=== PATIENT | male | born 1950 | race Caucasian/White ===

== ENCOUNTER 2020-04-05 09:47 | Day surgery (SDC) | payer MEDICARE, OTHER ==
[~2020-04-05 09:47] MED LIST: Cefuroxime 10 MG/ML SYRINGE EYELF SCH; Lidocaine 1% PF 2 ML SDV INJECT SCH; Pilocarpine 4% Ophth Soln 15 ML Bot EYELF SCH
[2020-04-05] MEDS: Polymyxin B/Trimethoprim 10 ML Bottle EYELF SCH ×3 (09:59→11:19)
[2020-04-05] MEDS: Brimonidine 0.2% Ophth Soln 5 ML Bottle EYELF SCH ×3 (10:03→11:19)
[2020-04-05] MEDS: Phenylephrine 2.5% Ophth Soln 2 ML Bot EYELF SCH ×5 (10:06→10:53)
--- NOTE | 2020-04-05 10:08 | PCM.PREANE ---
Preanesthetic Assessment - Anesthesia/Transfusion/Family Hx Anesthesia History: Prior Anesthesia Without Reaction Family History of Anesthesia Reaction: No Transfusion History: No Prior Transfusion(s) - Review of Systems General: No Symptoms Pulmonary: No Symptoms Cardiovascular: No Symptoms Gastrointestinal: No Symptoms Neurological: No Symptoms Other: Reports: None - Physical Assessment NPO Status Date: 04/04/20 NPO Status Time: 19:00 ASA Class: 2 Mental Status: Alert & Oriented x3 Airway Class: Mallampati = 1 Dentition: Reports: Normal Dentition Thyro-Mental Finger Breadths: 3 Mouth Opening Finger Breadths: 3 ROM/Head Extension: Full Lungs: Clear to Auscultation, Normal Respiratory Effort Cardiovascular: Regular Rate, Regular Rhythm - Allergies Allergies/Adverse Reactions: Allergies Allergy/AdvReac Type Severity Reaction Status Date / Time No Known Allergies Allergy Verified 08/17/15 08:14 - Acknowledgements Anesthesia Type Planned: MAC Pt an Appropriate Candidate for the Planned Anesthesia: Yes Alternatives and Risks of Anesthesia Discussed w Pt/Guardian: Yes Pt/Guardian Understands and Agrees with Anesthesia Plan: Yes PreAnesthesia Questionnaire HEENT History: Reports: Cataract Cardiovascular History: Reports: High Cholesterol Respiratory History: Reports: SOB (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) Gastrointestinal History: Reports: None Genitourinary History: Reports: None Musculoskeletal History: Reports: Arthritis Neurological History: Reports: None Psychiatric History: Reports: None Endocrine/Metabolic History: Reports: None - Past Surgical History HEENT Surgical History: Reports: Tonsillectomy, Other (See Below) (trachea, vocal cord) GI Surgical History: Reports: Appendectomy Musculoskeletal Surgical History: Reports: Shoulder Surgery, Other (See Below) (ankle, knee (R) multiple due to accident) - SUBSTANCE USE Tobacco Use Status *Q: Never Tobacco User - CURRENT (IN HOUSE) MEDS Current Meds: Current Medications Brimonidine Tartrate (Alphagan 0.2% Ophth Soln) 0 ml EYELF ASDIRECTED BENJY Stop: 04/05/20 23:00 Cefuroxime Sodium (Zinacef) 0 mg EYELF ASDIRECTED BENJY Stop: 04/05/20 23:00 Lidocaine HCl (Xylocaine-Mpf 1%) 0 ml INJECT ASDIRECTED BENJY Stop: 04/05/20 23:00 Phenylephrine HCl (Eamon-Synephrine 2.5% Ophth Soln) 0 ml EYELF ASDIRECTED BENJY Stop: 04/05/20 23:00 Pilocarpine HCl (Pilocar 4% Ophth Soln) 0 ml EYELF ASDIRECTED BENJY Stop: 04/05/20 23:00 Polymyxin/Trimethoprim Sulfate (Polytrim Ophth Soln) 0 ml EYELF ASDIRECTED BENJY Stop: 04/05/20 23:00 Last Admin: 04/05/20 09:59 Dose: 1 drop Documented by: Tetracaine HCl (Tetracaine 0.5% Steri-Unit Steffi) 0 ml EYEBOTH ASDIRECTED BENJY Stop: 04/05/20 23:00 Tropicamide (Mydriacyl 1% Ophth Soln) 0 ml EYELF ASDIRECTED BENJY Stop: 04/05/20 23:00
[2020-04-05] MEDS: Tropicamide 1% Ophth Soln 15 ML Bottle EYELF SCH ×4 (10:09→10:36)
[2020-04-05] MEDS: Tetracaine HCl/PF 0.5% 4 ML Bottle EYEBOTH SCH ×2 (10:40→11:01)
[2020-04-05] MEDS ORDERED: Lidocaine 1% with EPINEPHrine 1:100,000 20 ML MDV ONE (10:53)
[2020-04-05] MEDS ORDERED: Erythromycin Base 0.5% Ophth Oint 1 GM Tube ONE (10:53)
--- NOTE | 2020-04-05 11:20 | PCM48HPAN ---
Post Anesthesia Note - EVALUATION WITHIN 48HRS OF ANESTHETIC Vital Signs in Normal Range: Yes Patient Participated in Evaluation: Yes Respiratory Function Stable: Yes Airway Patent: Yes Cardiovascular Function Stable: Yes Hydration Status Stable: Yes Pain Control Satisfactory: Yes Nausea and Vomiting Control Satisfactory: Yes Mental Status Recovered: Yes Vital Signs: Last Vital Signs Temp 36.5 C 04/05/20 09:45 Pulse 72 04/05/20 09:45 Resp 16 04/05/20 09:45 BP 160/87 H 04/05/20 09:45 Pulse Ox 97 04/05/20 09:45
== END 2020-04-05 11:34 | disposition home or self-care (01) ==
LOC: JD.SDS 09:47
PROVIDERS: ATTEND Ophthalmology
DX: H25.813 Combined forms of age-related cataract, bilateral (principal); H21.81 Floppy iris syndrome; H21.42 Pupillary membranes, left eye; E78.00 Pure hypercholesterolemia, unspecified; H01.02B Squamous blepharitis left eye, upper and lower eyelids; H01.02A Squamous blepharitis right eye, upper and lower eyelids; H02.834 Dermatochalasis of left upper eyelid; H02.831 Dermatochalasis of right upper eyelid; H11.153 Pinguecula, bilateral; Z98.890 Other specified postprocedural states; Z90.89 Acquired absence of other organs; Z79.899 Other long term (current) drug therapy
CPT/HCPCS: 66982; C1780; J0697; J2001; A9270-GY

== ENCOUNTER 2025-02-18 11:20 | Day surgery (SDC) | payer MEDICARE, OTHER ==
[2025-02-18] MEDS: Tetracaine HCl/PF 0.5% 4 ML Bottle EYEBOTH SCH (07:31)
[2025-02-18] MEDS: Lidocaine 1% PF 2 ML SDV INJECT SCH (07:31)
[2025-02-18] MEDS: Pilocarpine 4% Ophth Soln 15 ML Bot EYERT SCH (07:32)
[2025-02-18] MEDS: Polymyxin B/Trimethoprim 10 ML Bottle EYERT SCH (07:32)
[2025-02-18] MEDS: Cefuroxime 10 MG/ML SYRINGE EYERT SCH (07:32)
[2025-02-18] MEDS: Tropicamide 1% Ophth Soln 3 ML Bottle EYERT SCH (11:50)
== END 2025-02-18 13:09 | disposition home or self-care (01) ==
LOC: JD.SDS 11:20
PROVIDERS: ATTEND Ophthalmology
DX: H25.811 Combined forms of age-related cataract, right eye (principal); H21.81 Floppy iris syndrome; H21.40 Pupillary membranes, unspecified eye; H40.011 Open angle with borderline findings, low risk, right eye; H35.3131 Nonexudative age-related macular degeneration, bilateral, early dry stage; H35.363 Drusen (degenerative) of macula, bilateral; H11.153 Pinguecula, bilateral; H18.413 Arcus senilis, bilateral; H02.831 Dermatochalasis of right upper eyelid; H02.834 Dermatochalasis of left upper eyelid; H57.813 Brow ptosis, bilateral; Z96.1 Presence of intraocular lens; Z79.899 Other long term (current) drug therapy
CPT/HCPCS: A9270-GY; J0697; J3490